=== PATIENT | male | born 1985 | race African-American/Black ===

== ENCOUNTER 2020-04-12 10:34 | Inpatient (IN) | payer OTHER ==
--- NOTE | 2020-04-12 11:43 | ED Physician Documentation ---
PD HPI DYSPNEA - Stated complaint Stated Complaint: SOA/CHEST PX/COUGH - Chief complaint Chief Complaint: Resp - History obtained from History obtained from: Patient - History of Present Illness Timing - onset: How many weeks ago (2.5) Timing - onset during: Rest Timing - duration: Weeks (2.5) Timing - details: Gradual onset, Still present Inciting event(s): Other (untreated hypertension) Improved by: Rest, Sitting up Worsened by: Exertion, Laying flat Associated symptoms: Cough, Chest pain / discomfort (to the Right chest). 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 He states that it comes on with any exertion or even bending over and that he does have some trouble sleeping at night having to sit up periodically to catch his breath. He had a particularly hard night last night and yesterday he tried some Primatene Mist thinking that might help open his airway and this essentially did nothing. He arrives to the emergency department this morning with concerns about exertional dyspnea and some right-sided chest pain that is developed about 2 days ago. He does indicate that he has regular alcohol consumption of a moderate amount 2-3 drinks and he denies excessive or binge drinking. He denies any family history of heart disease. He has had a history of hypertension and this has never been treated. He does remember his last value with a diastolic over 100. He denies any recent illness prior to the onset. He has now developed a dry cough. Review of Systems Constitutional: reports: Fatigue. denies: Fever Eyes: denies: Decreased vision Ears: denies: Ear pain Nose: denies: Rhinorrhea / runny nose, Congestion Throat: denies: Sore throat Cardiac: reports: Chest pain / pressure. denies: Palpitations, Pedal edema, Calf pain Respiratory: reports: Dyspnea, Cough. denies: Wheezing GI: denies: Abdominal Pain, Nausea, Vomiting : denies: Dysuria, Frequency Skin: denies: Rash Musculoskeletal: denies: Neck pain, Back pain, Extremity pain PD PAST MEDICAL HISTORY - Present Medications Home Medications: Ambulatory Orders Medication Instructions Recorded Confirmed Omeprazole 20 mg PO DAILY PRN 04/12/20 04/12/20 - Allergies Allergies/Adverse Reactions: Allergies Allergy/AdvReac Type Severity Reaction Status Date / Time No Known Drug Allergies Allergy Verified 04/12/20 10:45 PD ED PE NORMAL - Vitals Vital signs reviewed: Yes (tachy and hypertensive) - General General: Alert and oriented X 3, No acute distress, Well developed/nourished - HEENT HEENT: Atraumatic, PERRL, EOMI - Neck Neck: Supple, no meningeal sign, No bony TTP - Cardiac Cardiac: No murmur, Other (tachy) - Respiratory Respiratory: No respiratory distress, Other (diminished breath sounds without wheeze) - Abdomen Abdomen: Soft, Non tender - Back Back: No CVA TTP, No spinal TTP - Derm Derm: Normal color, Warm and dry, No rash - Extremities Extremities: No deformity, No edema - Neuro Neuro: Alert and oriented X 3, residential treatment counselor 2-12 intact, No motor deficit, No sensory deficit, Normal speech Eye Opening: Spontaneous Motor: Obeys Commands Verbal: Oriented GCS Score: 15 - Psych Psych: Normal mood, Normal affect Results - Vitals Vitals: Vital Signs - 24 hr 04/12/20 04/12/20 04/12/20 10:46 11:00 13:00 Temperature 36.7 C Heart Rate 118 H 114 H 114 H Respiratory 18 29 H 22 Rate Blood Pressure 141/106 H 152/117 H 151/110 H O2 Saturation 98 98 94 Oxygen O2 Source Room air - EKG (time done) 1053 Rate: Rate (enter#) (119) Rhythm: Sinus tachycardia QRS: LVH (with secondary repolarization abnormality with anterior ST elevation ) Compare to prior EKG: Old EKG unavailable Computer interpretation: Agree with computer - Labs Labs: Laboratory Tests 04/12/20 04/12/20 04/12/20 11:23 11:23 11:23 WBC 5.8 RBC 4.16 L Hgb 13.2 L Hct 39.9 L MCV 95.9 H MCH 31.7 H MCHC 33.1 RDW 14.3 Plt Count 119 L MPV 13.4 H Neut # (Auto) 3.9 Lymph # (Auto) 1.0 L [place] # (Auto) 0.8 Eos # (Auto) 0.1 Baso # (Auto) 0.0 Absolute Nucleated RBC 0.00 Nucleated RBC % 0.0 Sodium 141 Potassium 3.6 Chloride 103 Carbon Dioxide 24 Anion Gap 14.0 H BUN 13 Creatinine 1.1 Estimated GFR (MDRD) 92 Glucose 130 H Calcium 9.2 Total Bilirubin 1.6 H AST 93 H ALT 117 H Alkaline Phosphatase 48 Troponin I High Sens 78.5 H* B-Natriuretic Peptide Total Protein 7.1 Albumin 3.9 Globulin 3.2 Albumin/Globulin Ratio 1.2 Lipase 21 L 04/12/20 11:23 WBC RBC Hgb Hct MCV MCH MCHC RDW Plt Count MPV Neut # (Auto) Lymph # (Auto) [place] # (Auto) Eos # (Auto) Baso # (Auto) Absolute Nucleated RBC Nucleated RBC % Sodium Potassium Chloride Carbon Dioxide Anion Gap BUN Creatinine Estimated GFR (MDRD) Glucose Calcium Total Bilirubin AST ALT Alkaline Phosphatase Troponin I High Sens B-Natriuretic Peptide 2937 H Total Protein Albumin Globulin Albumin/Globulin Ratio Lipase - Rads (name of study) chest Radiology: Prelim report reviewed (Impression: Cardiomegaly and mild interstitial prominence can be seen. Although unusual in a patient of this age, please consider heart failure.), EMP read indepedently, See rad report Procedures - IVC sono (time) 1200 Bedside IVC sono: IVC measures (cm) (2.16), IVC collapsed c insp (cm) (2.16), High CVP PD MEDICAL DECISION MAKING - ED course Complexity details: reviewed results, re-evaluated patient, considered differential, d/w patient ED course: Previously well 34-year-old male with 2 and half weeks of exertional dyspnea progressive appears to have acute congestive heart failure on physical examination and laboratory testing and ancillary imaging. The suspected underlying etiology is untreated hypertension. I considered holiday heart to be unlikely by the patient's personal history of the amount of alcohol he is consuming recently.Dr. Jennings is consulted in the case and recommends admission to the floor for continued care. Departure - Departure Disposition: 66 [facility] DC/Xfer Clinical Impression: Hypertension, uncontrolled, Elevated troponin Pulmonary edema Qualifiers: Chronicity: chronic Qualified Code(s): J81.1 - Chronic pulmonary edema Condition: Serious
--- NOTE | 2020-04-12 11:47 | XRAY Report ---
PROCEDURE: Chest 1 View X-Ray INDICATIONS: Chest Pain TECHNIQUE: One view of the chest was acquired. COMPARISON: None FINDINGS: Surgical changes and devices: None. Lungs and pleura: No pleural effusions or pneumothorax. No focal infiltrates are seen. Mild inter stitial prominence is seen. Mediastinum: Mediastinal contours appear normal. Heart size is mildly to moderately enlarged. Bones and chest wall: No suspicious bony lesions. Overlying soft tissues appear unremarkable. IMPRESSION: Cardiomegaly and mild interstitial prominence can be seen. Although unusual in a patient of this age, please consider heart failure. Reviewed by: Demar Sofia MD on 04/12/2020 10:46 AM MAUDE Approved by: Demar Sofia MD on 04/12/2020 10:46 AM MAUDE Station ID: [id number]
[2020-04-12 12:14] LABS: BASOPHILS % (AUTO) 0.5 %; EOSINOPHILS # (AUTO) 0.1 10^3/uL (0.0-0.7); EOSINOPHILS % (AUTO) 2.1 %; HGB - HEMOGLOBIN 13.2 g/dL (14.0-18.0); LYMPHOCYTES % (AUTO) 16.4 %; MEAN CORPUSCULAR HEMOGLOBIN 31.7 pg (27.0-31.0); MEAN CORPUSCULAR HGB CONC 33.1 g/dL (32.0-36.0); MEAN CORPUSCULAR VOLUME 95.9 fL (80.0-94.0); MEAN PLATELET VOLUME 13.4 fL (7.4-11.4); MONOCYTES # (AUTO) 0.8 10^3/uL (0.0-1.0); MONOCYTES % (AUTO) 13.9 %; NEUTROPHILS # (AUTO) 3.9 10^3/uL (1.5-6.6); NEUTROPHILS % (AUTO) 66.9 %; PLT - PLATELET COUNT 119 10^3/uL (130-450); RED BLOOD COUNT 4.16 10^6/uL (4.70-6.10); RED CELL DISTRIBUTION WIDTH 14.3 % (12.0-15.0); WHITE BLOOD COUNT 5.8 x10^3/uL (4.8-10.8)
[2020-04-12 12:18] LABS: ALBUMIN 3.9 g/dL (3.2-5.5); ALBUMIN/GLOBULIN RATIO 1.2 (1.0-2.2); BILIRUBIN,TOTAL 1.6 mg/dL (0.2-1.0); CALCIUM 9.2 mg/dL (8.5-10.3); CREATININE 1.1 mg/dL (0.6-1.2); TOTAL PROTEIN 7.1 g/dL (6.7-8.2)
[2020-04-12] MEDS ORDERED: FUROSEMIDE 40 MG/4 ML VIAL IVP STA (12:29)
[2020-04-12] MEDS ORDERED: ONDANSETRON 4 MG/2 ML VIAL IVP PRN (13:19)
[2020-04-12] MEDS ORDERED: SODIUM CHLORIDE FLUSH 0.9% 10 ML SYRINGE IVP PRN (13:19)
[2020-04-12] MEDS ORDERED: MORPHINE 2 MG/ML CARPUJECT IVP PRN (13:19)
[2020-04-12] MEDS ORDERED: ASPIRIN CHEW 81 MG TABLET PO STA (13:25)
[2020-04-12] MEDS ORDERED: LORazepam 2 MG/ML VIAL IVP PRN (13:34)
[2020-04-12] MEDS ORDERED: METOPROLOL 5 MG/5 ML VIAL IVP STA (13:36)
[2020-04-12] MEDS ORDERED: METOPROLOL 5 MG/5 ML VIAL IVP SCH ×2 (14:00)
--- NOTE | 2020-04-12 15:00 | HISTORY & PHYSICAL EXAMINATION ---
DATE OF SERVICE: 04/12/2020 Physician: Luisa Jennings MD HISTORY OF PRESENT ILLNESS: This is a 34-year-old white male who has a history of untreated hypertension by his own admission, he only takes omeprazole p.r.n. He is active in the [employer]. He presents to the Emergency Room with complaints of a 2-1/2 week history of dyspnea on exertion and PND and orthopnea, especially worse over the last 2 days and last night. He tried to take Primatene mist yesterday for helping with the breathing, which had no effect. He came to the ER with this complaint and was found to be hypertensive with blood pressure 157/110 and tachycardic in sinus rhythm at a heart rate of 115. His chest x-ray showed pulmonary edema and his BNP has returned at 2900. The patient is being admitted for new onset of pulmonary edema, uncontrolled hypertension and tachycardia. PAST MEDICAL HISTORY: Negative. ALLERGIES: NONE. MEDICATIONS: Omeprazole p.r.n. FAMILY HISTORY: No inherited diseases on his mother side, he knows nothing about his father. He was and is , he has 2 children who are healthy, age 14 and 1, they live with their mother. SOCIAL HISTORY: The patient is a vaper of nicotine, uses alcohol, he does drink about 2 alcoholic drinks per day, but does not binge. REVIEW OF SYSTEMS: There has been no chest pain except recently on the right side, which is positional and pleuritic. He denies any palpitations or syncope. He denies nausea, vomiting, diarrhea. He has never had this symptom before 2- 1/2 weeks ago. He has been told on many [place] medical exams that he has hypertension, always told to "watch it", has never been started on blood pressure meds. He remembers this for about the last 3 years. Cannot remember if he is ever had an EKG. He has never had an Echo. He just had a medical exam 3 weeks ago in [place], before traveling to his newly assigned job at [employer]. He arrived here yesterday. He came with a dog in the car, the dog is still in the car. A comprehensive review of systems was performed and the pertinent positives are listed, the rest are negative. PHYSICAL EXAM GENERAL: Middle-aged black male. He is in mild respiratory distress. VITAL SIGNS: Blood pressure 151/110, heart rate 114 in sinus tachycardia, respiratory rate 22-29, room air saturation 94%. HEENT: Reveals moist oral mucosa and unremarkable. NECK: Shows no JVD in a vertical position. No carotid bruits. CHEST: Has bibasilar crackles. HEART: Tachycardiac. No audible murmur. ABDOMEN: Soft, nontender. Normal bowel sounds. EXTREMITIES: No clubbing, cyanosis or edema. NEUROLOGIC: Grossly intact. LABORATORY DATA: Normal electrolytes. Normal BUN and creatinine. Bilirubin 1.6, AST 93, ALT 117. Troponin high sensitivity is 78.5. BNP 2937. Normal lipase. White blood count 5.8, hemoglobin 13.2 with MCV of 95, platelet count borderline low at 119. No INR was done. Chest x-ray: Cardiomegaly and mild pulmonary edema. EKG: Sinus tachycardia at a rate of 119, LVH voltage with strain pattern in the precordial leads. Flat T waves in leads I, II, III and aVF. There is no old EKG available for comparison. IMPRESSION/DIAGNOSES 1. Pulmonary edema. 2. Hypertension, uncontrolled. 3. Tachycardia. 4. Elevated troponin. 5. Left ventricular hypertrophy seen on EKG, likely from his uncontrolled longstanding hypertension. 6. Alcohol use. 7. Elevated liver function tests, this may be passive liver congestion from CHF versus from his alcohol use. 8. Anemia. This may be hemodilutional given his volume overload or if it is a primary problem, it is adding to his congestive heart failure and work of breathing. PLAN: Admit the patient to med/surg status, on telemetry. Cycle troponins. Obtain an echo to evaluate LV and RV contractility. Begin IV b.i.d. Lasix, follow I's and O's and daily weights closely. Begin a low-salt cardiac diet. Give 4 chewable baby aspirin now because of the elevated troponin and start 1 baby aspirin daily. Use beta magdiel for rate control and for presumed systolic heart failure, and IV Lopressor dose will be given now to help the blood pressure and tachycardia. Follow his liver test daily, CBC daily. Order CIWA protocol because of his alcohol use history. Obtain social work consult regarding alcohol use versus abuse. DEEP VENOUS THROMBOSIS PROPHYLAXIS: Pharmacotherapy with Lovenox. CODE STATUS: FULL CODE. ATTESTATION: The patient is expected to be discharged or transferred to another facility within 96 hours: Yes. TD: 04/12/2020 13:46 HARRISON
[2020-04-12] MEDS: FUROSEMIDE 20 MG/2 ML VIAL IVP SCH (17:52)
[2020-04-12] MEDS: SODIUM CHLORIDE FLUSH 0.9% 10 ML SYRINGE IVP SCH (17:59)
--- NOTE | 2020-04-12 20:09 | PROVIDER PROGRESS NOTE ---
Hospitalist Cross-cover Note - Cross-Cover Note Cross-Cover Note: The patient was given IV diuretic in the ER and has started to have diuresis and feels better, is less orthopneic. Blood pressure has improved from 150 systolic to 130 systolic, heart rate down from 114 to 90. Bedside Echo was done by myself and shows very dilated LV, thickened LV marshall, severe global hypokinesis, EF about 15%. I discussed with patient the possible reasons for this finding: Untreated hypertension longstanding, drug or alcohol abuse, viral infection causing cardiomyopathy, coronary disease causing global ischemia. Will add Spironolactone and start SAUL inhibitor. Continue IV diuretic and beta- magdiel. The troponins are continuing to rise: 70>> 130>> 166. Will continue to test serial troponins until we see the peak and it turns around. Will add 4 baby aspirin now and daily baby ASA, and start Nitropaste. He will need to be transferred to higher level of care, in his case to [facility], I will attempt to do this to tomorrow. I told him and our [facility] RN this. 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 Critical care time spent on all the above: 45 minutes
[2020-04-12] MEDS: FAMOTIDINE 20 MG TABLET PO SCH (20:38)
[2020-04-12] MEDS: METOPROLOL SUCCINATE 25 MG TABLET PO SCH (20:38)
[2020-04-12] MEDS: NITROGLYCERIN 2% PASTE TOP SCH (22:07)
[2020-04-13] MEDS: SODIUM CHLORIDE FLUSH 0.9% 10 ML SYRINGE IVP SCH ×3 (01:20→17:34)
[2020-04-13 05:50] LABS: BASOPHILS # (AUTO) 0.1 10^3/uL (0.0-0.1); BASOPHILS % (AUTO) 0.8 %; EOSINOPHILS # (AUTO) 0.2 10^3/uL (0.0-0.7); EOSINOPHILS % (AUTO) 2.8 %; HGB - HEMOGLOBIN 13.3 g/dL (14.0-18.0); LYMPHOCYTES # (AUTO) 1.3 10^3/uL (1.5-3.5); LYMPHOCYTES % (AUTO) 21.9 %; MEAN CORPUSCULAR HEMOGLOBIN 32.3 pg (27.0-31.0); MEAN CORPUSCULAR HGB CONC 33.3 g/dL (32.0-36.0); MEAN CORPUSCULAR VOLUME 97.1 fL (80.0-94.0); MEAN PLATELET VOLUME 13.8 fL (7.4-11.4); MONOCYTES # (AUTO) 0.8 10^3/uL (0.0-1.0); MONOCYTES % (AUTO) 12.7 %; NEUTROPHILS # (AUTO) 3.7 10^3/uL (1.5-6.6); NEUTROPHILS % (AUTO) 61.5 %; PLT - PLATELET COUNT 121 10^3/uL (130-450); RED BLOOD COUNT 4.12 10^6/uL (4.70-6.10); RED CELL DISTRIBUTION WIDTH 14.1 % (12.0-15.0)
[2020-04-13] MEDS: NITROGLYCERIN 2% PASTE TOP SCH ×3 (06:12→21:39)
[2020-04-13 06:17] LABS: ALBUMIN 3.6 g/dL (3.2-5.5); ALBUMIN/GLOBULIN RATIO 1.1 (1.0-2.2); ALKALINE PHOSPHATASE 44 IU/L (42-121); ALT ALANINE AMINOTRANSFERASE 102 IU/L (10-60); AST ASPARTATE AMINOTRANSFERASE 72 IU/L (10-42); BILIRUBIN,TOTAL 0.9 mg/dL (0.2-1.0); BUN - BLOOD UREA NITROGEN 18 mg/dL (6-20); CALCIUM 9.2 mg/dL (8.5-10.3); CARBON DIOXIDE - CO2 19 mmol/L (21-32); CHLORIDE 105 mmol/L (101-111); CHOL/HDL RATIO 4.1 (<5.0); CHOLESTEROL 236 mg/dL; CREATININE 1.4 mg/dL (0.6-1.2); GLUCOSE 133 mg/dL (70-100); HDL CHOLESTEROL 58 mg/dL; LDL CHOLESTEROL,CALCULATED 147 mg/dL; LDL/HDL RATIO 2.5 (<3.6); SODIUM 141 mmol/L (135-145); TOTAL PROTEIN 6.9 g/dL (6.7-8.2); VLDL CHOLESTEROL 31 mg/dL
[2020-04-13] MEDS: FUROSEMIDE 20 MG/2 ML VIAL IVP SCH ×2 (06:29→13:20)
[2020-04-13] MEDS ORDERED: lisinopriL 5 MG TABLET PO SCH (09:00)
[2020-04-13] MEDS: FAMOTIDINE 20 MG TABLET PO SCH ×2 (10:28→21:40)
[2020-04-13] MEDS: ASPIRIN EC 81 MG TABLET PO SCH (10:28)
[2020-04-13] MEDS: SPIRONOLACTONE 25 MG TABLET PO SCH (10:30)
[2020-04-13] MEDS: METOPROLOL SUCCINATE 25 MG TABLET PO SCH ×2 (10:30→21:40)
[2020-04-13] MEDS: ENOXAPARIN 40 MG/0.4 ML SYRINGE SUBQ SCH (10:34)
--- NOTE | 2020-04-13 13:59 | PROVIDER PROGRESS NOTE ---
Assessment/Plan - Problem List (1) Acute systolic heart failure Assessment/Plan: The patient's 2 and half weeks of worsening dyspnea on exertion and 2 days of severe orthopnea plus admission BNP of 2900, were consistent with severe congestive heart failure. I did a bedside Echo yesterday that showed a dilated LV with LVEF of about 15%. Today the patient had a complete Echo done with Doppler and this confirms a dilated LV with EF less than 20%. He has pulmonary hypertension as well. IV Lasix twice daily has been started and he is having a good diuretic effect, it is helping his PND. He has also been started on beta-magdiel, SAUL inhibitor and Spironolactone. This combination of meds has helped his untreated blood pressure. Follow-up BNP until we see an improvement. Follow his electrolytes daily and magnesium daily with diuresis starting. A 2000 and a fluid restriction was ordered and low-salt, cardiac diet Follow daily weights and strict I's and O's were ordered. He was told yesterday and also reiterated today with the listening by phone, that CHF this severe could take 3 months or more to see an improvement in ejection fraction. It would been on the cause, therefore he needs transfer for coronary angiography and left and right heart catheterization. I asked if he needs any emotional support, and will let SW know. (2) Type 2 acute myocardial infarction Assessment/Plan: His troponins have increased significantly and peaked in the 700s, then down to 500s. He received 4 baby aspirin last night, and is on daily baby aspirin now, and als o was started on Nitropaste which was dosed to help the high blood pressure as well. Transfer for coronary angiography and left & rigjht heart catheterization is the plan. I reached out to [facility] near [place] today, they have no beds available, and are housing people awaiting surgeries and do not anticipate bed s opening. The person said that he can be transferred to a civilian hospital. I offered the patient choices as to location for cardiology services and he has never been at any of our higher level of care hospitals, in [facility]. I also spoke to his by phone in the patient's room, and she wonders if he can be transferred to a hospital closer to his family and relatives who are all in [place] in [place]. I will pass on this question to utilization management. (3) Hypertension, uncontrolled Assessment/Plan: Patient had reported that at [facility] medical visits, he was told he had high blood pressure then was told to purchase a blood pressure cuff and "keep an eye on it". This recurred for the about the last 3 years. He was never started on blood pressure meds however. Mentation blood pressure was 157/110. Blood pressure is in the 1 20-1 30s systolic now with his combination of meds started to treat CHF. (4) PAULINE (acute kidney injury) Assessment/Plan: Creatinine has risen from normal to 1.4 today. We will decrease the rate of diuresis, decrease iv Lasix to once a day. Avoid nephrotoxic agents. Follow BMP daily (5) Hyperlipidemia Assessment/Plan: Fasting lipid panel blood tests were done this morning: Triglycerides are elevated at 153, and LDL is elevated at 147. Lipitor started for the type II UT at 80 mg. We will order a low sweets/low starch diet and continue cardiac diet. (6) Vapes nicotine containing substance Assessment/Plan: Potentially the patient wanted to go to the car for a nicotine urge. He was offered a nicotine patch and very much wants 1. Nicotine 14 mg topically daily has been ordered to start today - Current Meds Current Meds: Current Medications Generic Name Dose Route Start Last Admin Trade Name Edmundoq PRN Reason Stop Dose Admin Aspirin 81 mg 04/13/20 09:00 04/13/20 10:28 Ecotrin PO 81 mg DAILY MARKY Administration Enoxaparin Sodium 40 mg 04/13/20 09:00 04/13/20 10:34 Lovenox SUBQ 40 mg DAILY MARKY Administration Famotidine 20 mg 04/12/20 21:00 04/13/20 10:28 Pepcid PO 20 mg BID MARKY Administration Furosemide 20 mg 04/12/20 14:00 04/13/20 13:20 Lasix Inj 20mg Vial IVP 20 mg BIDDIURETIC MARKY Administration Lisinopril 5 mg 04/13/20 09:00 04/13/20 10:29 Zestril PO 5 mg DAILY MARKY Administration Metoprolol Succinate 25 mg 04/12/20 21:00 04/13/20 10:30 Toprol Xl PO 25 mg BID MARKY Administration Nitroglycerin 0.5 inch 04/12/20 21:00 04/13/20 13:20 Nitro-Bid (Pkt) TOP 0.5 inch Q8H MARKY Administration Sodium Chloride 10 ml 04/12/20 17:00 04/13/20 10:30 Normal Saline Flush 0.9% IVP 10 ml 0100,0900,1700 MARKY Administration Spironolactone 25 mg 04/13/20 09:00 04/13/20 10:30 Aldactone PO 25 mg DAILY MARKY Administration - Lab Result Fish Bone Diagrams: 04/13/20 05:20 04/13/20 05:20 - Additional Planning My Orders: My Active Orders 04/12/20 13:19 Activity Orders [RC] Q2HR Fluid Restriction [RC] ONCE IO [RC] IOSHIFT Initiate Bowel Care Protocol [RC] .protocol Initiate Personal Care Protoco [RC] .protocol Oxygen Therapy [RC] Routine Telemetry- [RC] Q4HR Vital Signs [RC] Q4HR Morphine Inj (Carpuject) [Morphine (Carpuject)] 1 mg IVP Q4HR PRN Ondansetron Inj [Zofran Inj] 4 mg IVP Q6HR PRN Sodium Chloride Flush 0.9% [Normal Saline Flush 0.9%] 10 ml IVP PRN PRN Code Status [OTHERS] Routine Condition of Patient [OTHERS] Routine DVT Prophylaxis [OTHERS] Routine 04/12/20 13:21 Daily Weight [RC] 0600 04/12/20 13:23 Initiate Line Care Protocol [RC] QSHIFT Miscellaenous Nursing Order [RC] QSHIFT 04/12/20 13:34 Vital Signs [RC] Q3HR LORazepam INJ [Ativan Inj (Vial)] 1 mg IVP Q30M PRN 04/12/20 13:35 Blood Glucose POC [RC] Routine CIWA - AR Score Card [RC] Q4HR Q4HR Neuro Check [RC] Routine Routine Social Work Consult [CONS] Routine 04/12/20 14:00 FUROSEMIDE INJ 20mg VIAL [LASIX INJ 20mg VIAL] 20 mg IVP BIDDIURETIC 04/12/20 Dinner Low Sodium Diet [DIET] 04/12/20 17:00 Sodium Chloride Flush 0.9% [Normal Saline Flush 0.9%] 10 ml IVP 0100,0900,1700 04/12/20 21:00 Famotidine [Pepcid] 20 mg PO BID Metoprolol Succinate [Toprol Xl] 25 mg PO BID 04/13/20 08:00 Echo Transthoracic Complete [ECHO] Routine 04/13/20 09:00 Aspirin EC [Ecotrin] 81 mg PO DAILY Enoxaparin [Lovenox] 40 mg SUBQ DAILY Spironolactone [Aldactone] 25 mg PO DAILY lisinopriL [Zestril] 5 mg PO DAILY 04/13/20 13:56 Nicotine 14 mg Patch [Nicoderm] 1 patch TOP DAILY 04/14/20 05:00 BNP - B-NATRIURETIC PEPTIDE [IAI] DAILYLAB CBC - COMP BLD CT W/AUTO DIFF [HEME] DAILYLAB CMP [COMPREHENSIVE METABOLIC PANEL] [CHEM] DAILYLAB MAGNESIUM [CHEM] DAILYLAB 04/15/20 05:00 CBC - COMP BLD CT W/AUTO DIFF [HEME] DAILYLAB CMP [COMPREHENSIVE METABOLIC PANEL] [CHEM] DAILYLAB MAGNESIUM [CHEM] DAILYLAB 04/16/20 05:00 CBC - COMP BLD CT W/AUTO DIFF [HEME] DAILYLAB CMP [COMPREHENSIVE METABOLIC PANEL] [CHEM] DAILYLAB MAGNESIUM [CHEM] DAILYLAB Subjective - Subjective Patient Reports: Feeling Better, Shortness of Breath, Other (The orthopnea was better, less dyspnea during walking in his room, he is urinating about once an hour, he seemed fidgety and wanted to go to his car "to get his uniform", Gerardo was going to be transferred to [facility].) Objective Vital Signs: Vital Signs - 24 hr 04/12/20 04/12/20 04/12/20 16:00 17:42 17:51 Temperature 37.4 C Heart Rate Heart Rate [ 114 H 116 H Brachial] Respiratory 16 16 Rate Blood Pressure 156/103 H Blood Pressure 135/105 H 148/104 H [Right Brachial artery] O2 Saturation 98 98 04/12/20 04/12/20 04/12/20 17:56 18:01 18:06 Temperature Heart Rate Heart Rate [ 56 L 58 L 106 H Brachial] Respiratory Rate Blood Pressure Blood Pressure 156/103 H 140/97 H 123/104 H [Right Brachial artery] O2 Saturation 98 98 96 04/12/20 04/12/20 04/12/20 18:11 18:26 18:41 Temperature Heart Rate Heart Rate [ 102 H 110 H 100 Brachial] Respiratory Rate Blood Pressure Blood Pressure 130/93 H 130/91 H 136/95 H [Right Brachial artery] O2 Saturation 96 98 98 04/12/20 04/12/20 04/12/20 18:56 20:36 21:00 Temperature 37.2 C Heart Rate Heart Rate [ 104 H 112 H 106 H Brachial] Respiratory Rate Blood Pressure Blood Pressure 128/90 H 132/92 H 126/101 H [Right Brachial artery] O2 Saturation 99 94 04/13/20 04/13/20 04/13/20 00:05 03:48 08:45 Temperature 37.0 C 37.2 C 37.0 C Heart Rate Heart Rate [ 101 H 103 H 98 Brachial] Respiratory 16 19 18 Rate Blood Pressure Blood Pressure 121/69 136/97 H 124/99 H [Right Brachial artery] O2 Saturation 100 95 98 04/13/20 04/13/20 10:52 12:00 Temperature 37 C 37.0 C Heart Rate 98 Heart Rate [ 78 Brachial] Respiratory 18 17 Rate Blood Pressure Blood Pressure 133/77 H [Right Brachial artery] O2 Saturation 98 99 Oxygen O2 Source Room air I&O (Last 24 Hrs): Intake and Output Totals x24h 04/11/20 04/12/20 04/13/20 23:59 23:59 23:59 Intake Total 480 660 Output Total 800 Balance 480 -140 General: Alert, Oriented x3 HEENT: Mucous membr. moist/pink Neck: No JVD Neuro: Alert, Non Focal Cardiovascular: Regular rate Respiratory: Rales Abdomen: Soft Extremities: No edema - Results Results: Laboratory Results WBC 6.0 x10^3/uL (4.8-10.8) 04/13/20 05:20 RBC 4.12 10^6/uL (4.70-6.10) L 04/13/20 05:20 Hgb 13.3 g/dL (14.0-18.0) L 04/13/20 05:20 Hct 40.0 % (42.0-52.0) L 04/13/20 05:20 MCV 97.1 fL (80.0-94.0) H 04/13/20 05:20 MCH 32.3 pg (27.0-31.0) H 04/13/20 05:20 MCHC 33.3 g/dL (32.0-36.0) 04/13/20 05:20 RDW 14.1 % (12.0-15.0) 04/13/20 05:20 Plt Count 121 10^3/uL (130-450) L 04/13/20 05:20 MPV 13.8 fL (7.4-11.4) H 04/13/20 05:20 Neut # (Auto) 3.7 10^3/uL (1.5-6.6) 04/13/20 05:20 Lymph # (Auto) 1.3 10^3/uL (1.5-3.5) L 04/13/20 05:20 Keith # (Auto) 0.8 10^3/uL (0.0-1.0) 04/13/20 05:20 Eos # (Auto) 0.2 10^3/uL (0.0-0.7) 04/13/20 05:20 Baso # (Auto) 0.1 10^3/uL (0.0-0.1) 04/13/20 05:20 Absolute Nucleated RBC 0.00 x10^3/uL 04/13/20 05:20 Nucleated RBC % 0.0 /100WBC 04/13/20 05:20 Whole Blood INR 1.0 (0.8-1.2) 04/13/20 12:25 Sodium 141 mmol/L (135-145) 04/13/20 05:20 Potassium 3.7 mmol/L (3.5-5.0) 04/13/20 05:20 Chloride 105 mmol/L (101-111) 04/13/20 05:20 Carbon Dioxide 19 mmol/L (21-32) L 04/13/20 05:20 Anion Gap 17.0 (6-13) H 04/13/20 05:20 BUN 18 mg/dL (6-20) 04/13/20 05:20 Creatinine 1.4 mg/dL (0.6-1.2) H 04/13/20 05:20 Estimated GFR (MDRD) 70 (>89) L 04/13/20 05:20 Glucose 133 mg/dL (70-100) H 04/13/20 05:20 Calcium 9.2 mg/dL (8.5-10.3) 04/13/20 05:20 Magnesium 2.0 mg/dL (1.7-2.8) 04/13/20 05:20 Total Bilirubin 0.9 mg/dL (0.2-1.0) 04/13/20 05:20 GGT 206 IU/L (8-55) H 04/12/20 16:50 AST 72 IU/L (10-42) H 04/13/20 05:20 ALT 102 IU/L (10-60) H 04/13/20 05:20 Alkaline Phosphatase 44 IU/L (42-121) 04/13/20 05:20 Troponin I High Sens 542.5 ng/L (2.3-19.7) H* 04/13/20 12:25 B-Natriuretic Peptide 3537 pg/mL (5-100) H 04/13/20 05:20 Total Protein 6.9 g/dL (6.7-8.2) 04/13/20 05:20 Albumin 3.6 g/dL (3.2-5.5) 04/13/20 05:20 Globulin 3.3 g/dL (2.1-4.2) 04/13/20 05:20 Albumin/Globulin Ratio 1.1 (1.0-2.2) 04/13/20 05:20 Triglycerides 154 mg/dL (-149) H 04/13/20 05:20 Cholesterol 236 mg/dL (-199) H 04/13/20 05:20 LDL Cholesterol, Calc 147 mg/dL (-129) H 04/13/20 05:20 VLDL Cholesterol 31 mg/dL 04/13/20 05:20 HDL Cholesterol 58 mg/dL (60-) L 04/13/20 05:20 LDL/HDL Ratio 2.5 (<3.6) 04/13/20 05:20 Cholesterol/HDL Ratio 4.1 (<5.0) 04/13/20 05:20 Lipase 21 U/L (22-51) L 04/12/20 11:23
[2020-04-13] MEDS: NICOTINE 14 MG PATCH TOP SCH (14:20)
--- NOTE | 2020-04-13 16:46 | PHARMACY PROGRESS NOTE ---
- Best Possible Medication History Admit Date and Time: 04/12/20 1319 Processed by: Pharmacy Medication History completed: Yes Patient Interview: Completed Secondary Source(s): Physician records (PATIENT INTERVIEWED BY SERVICE DISPATCHER. PATIENT ABLE TO CONFIRM HOME MEDICATIONS), Pharmacy records, Insurance records As the person ultimately responsible for medication therapy, providers are able to order a medication from an existing home medication list in [facility] via the "Reconcile Routine" prior to Confirmation of that medication by technical support internship. Such practice is discouraged except when the physician, in their clinical judgment, deems that a medical need exists for a medication without regard to previous use.
[2020-04-13] MEDS ORDERED: traZODone 50 MG TABLET PO SCH (21:00)
[2020-04-13] MEDS ORDERED: ATORVASTATIN 40 MG TABLET PO SCH (21:00)
[2020-04-14] MEDS: SODIUM CHLORIDE FLUSH 0.9% 10 ML SYRINGE IVP SCH ×2 (03:00→08:44)
[2020-04-14] MEDS: NITROGLYCERIN 2% PASTE TOP SCH (05:30)
[2020-04-14 05:55] LABS: BASOPHILS % (AUTO) 0.7 %; EOSINOPHILS % (AUTO) 3.4 %; HGB - HEMOGLOBIN 13.2 g/dL (14.0-18.0); LYMPHOCYTES % (AUTO) 22.4 %; MEAN CORPUSCULAR HEMOGLOBIN 31.9 pg (27.0-31.0); MEAN CORPUSCULAR HGB CONC 33.5 g/dL (32.0-36.0); MEAN CORPUSCULAR VOLUME 95.2 fL (80.0-94.0); MEAN PLATELET VOLUME 13.7 fL (7.4-11.4); MONOCYTES % (AUTO) 13.2 %; NEUTROPHILS % (AUTO) 60.1 %; PLT - PLATELET COUNT 125 10^3/uL (130-450); RED BLOOD COUNT 4.14 10^6/uL (4.70-6.10); RED CELL DISTRIBUTION WIDTH 13.8 % (12.0-15.0); WHITE BLOOD COUNT 5.6 x10^3/uL (4.8-10.8)
[2020-04-14 06:12] LABS: ALBUMIN 3.6 g/dL (3.2-5.5); ALBUMIN/GLOBULIN RATIO 1.3 (1.0-2.2); BILIRUBIN,TOTAL 1.1 mg/dL (0.2-1.0); CALCIUM 9.2 mg/dL (8.5-10.3); CREATININE 1.2 mg/dL (0.6-1.2); MAGNESIUM 1.9 mg/dL (1.7-2.8); TOTAL PROTEIN 6.4 g/dL (6.7-8.2)
[2020-04-14 06:14] LABS: RBC MORPHOLOGY (MULTIPLE) NORMAL APPEARANCE (NORMAL)
[2020-04-14 06:15] LABS: DIFFERENTIAL COMMENT MANUAL DIFFERENTIAL; PLATELET ESTIMATE, MANUAL DECREASED (<130,000) (NORMAL); PLATELET MORPHOLOGY 1+ LARGE PLATELETS (NORMAL)
[2020-04-14] MEDS ORDERED: FUROSEMIDE 20 MG/2 ML VIAL IVP SCH (08:00)
[2020-04-14] MEDS ORDERED: POTASSIUM CHLORIDE 20 MEQ TABLET PO ONE (08:23)
[2020-04-14] MEDS: SPIRONOLACTONE 25 MG TABLET PO SCH (08:42)
[2020-04-14] MEDS: ENOXAPARIN 40 MG/0.4 ML SYRINGE SUBQ SCH (08:43)
[2020-04-14] MEDS: FAMOTIDINE 20 MG TABLET PO SCH (08:43)
[2020-04-14] MEDS: ASPIRIN EC 81 MG TABLET PO SCH (08:43)
[2020-04-14] MEDS: METOPROLOL SUCCINATE 25 MG TABLET PO SCH (08:43)
[2020-04-14] MEDS ORDERED: lisinopriL 5 MG TABLET PO SCH (09:00)
[2020-04-14] MEDS: NICOTINE 14 MG PATCH TOP SCH (09:40)
[2020-04-14 10:41] LABS: HEMOGLOBIN A1c% 5.7 % (4.27-6.07)
[2020-04-14 11:41] VITALS: BP 106/77
--- NOTE | 2020-04-14 12:35 | DISCHARGE SUMMARY ---
"Discharge Summary Admit Date: 04/12/20 Discharge Date: 04/14/20 Discharging Provider: Oscar Sol Code Status: Attempt Resuscitation Condition at Discharge: Serious Discharge Disposition: 02 Transfer Acute Care Hosp Discharge Facility Name: [facility] - DIAGNOSES Admission Diagnoses: Pulmonary edema Hypertension, uncontrolled Tachycardia Elevated troponin LVH on EKG Elevated LFTs Anemia Discharge Diagnoses with Status of Each Condition: Acute systolic congestive heart failure Hypertension Mitral regurgitation Elevated right heart pressures - HPI History of Present Illness: H&P per Dr. Jennings: This is a 34-year-old male who has a history of untreated hypertension but is on admission, he only takes Meprazole as needed. He is active in the [employer]. He presents the emergency room with complaints of a 2-1/2-week history of dyspnea on exertion and PND and orthopnea, especially worse over the last 2 days and last night. He tried taking Primatene Mist yesterday following with the breathing, which had no effect. He came to the ER with this complaint is found to be hypertensive with a blood pressure 157/110 and tachycardic in a sinus rhythm at a heart of 115. His chest x-ray showed pulmonary edema and his BNP returned at 2900. The patient is being admitted for new onset of pulmonary edema, uncontrolled hypertension and tachycardia. - CONSULTS | PROCEDURES Procedures: Echocardiogram on April 13 showed severe left ventricular enlargement. Overall left ventricular systolic function is severely impaired with global h ypokinesis, and ejection fraction less than 20%. The right ventricle is normal in size and function. There is thickening of the mitral valve leaflets. There is moderate to severe mitral regurgitation. The ER was 0.24 cm and the regurgitant volume is 35mL. Moderate tricuspid regurgitation. Moderately abnormal right heart pressures. The RVSP at rest is 58 mmHg. Chest x-ray April 12 showed cardiomegaly and mild interstitial prominence. Please consider heart failure. - HOSPITAL COURSE Hospital Course: >He was admitted to the floor for suspected new onset congestive heart failure. He was diuresed with IV Lasix. The following day his BNP had increased to 3500 from 2900 on admission. His troponins increased from the 70s to over 700 but have since trended down. An echocardiogram was obtained which showed a severely enlarged left ventricle with an ejection fraction of less than 20% with global hypokinesis. He was started on Aldactone, lisinopril, Toprol in addition to the Lasix. His BNP has trended down to 1600 and he has clinically improved. He is able to ambulate in his room with much improvement in his dyspnea. His EKG was suggestive of LVH with early repolarization. It was felt that his heart failure was likely due to uncontrolled hypertension. The patient did report daily alcohol use over the past few months where he has been consuming a pint of alcohol every 2-3 nights. He reports a remote history of smoking but denies any current cigarette use. He does admit to vaping. He reports no prior history of heroin, methamphetamine, cocaine use. He does report a remote history of marijuana use.Given the echocardiogram findings, it was felt the patient would be best transferred to higher level of care for further cardiac evaluation. [facility] was contacted but there were no beds available. [facility] were also contacted but unfortunately no beds were available. I spoke with Dr. Lopez of cardiology at [facility] in [place] who felt the patient should be transferred for further work-up including likely cardiac MRI. I spoke with Dr. Saleem of the hospitalist [facility] who graciously accepted the patient. - ALLERGIES Allergies/Adverse Reactions: Allergies Allergy/AdvReac Type Severity Reaction Status Date / Time No Known Drug Allergies Allergy Verified 04/12/20 10:45 - MEDICATIONS Home Medications: Ambulatory Orders Medication Instructions Recorded Confirmed Omeprazole 20 mg PO DAILY PRN 04/12/20 04/12/20 Home Medications Other | Comments: Active Medications Aspirin (Ecotrin) 81 mg PO DAILY [facility] Last Admin: 04/14/20 08:43 Dose: 81 mg Documented by: Atorvastatin Calcium (Lipitor) 40 mg PO QPM [facility] Enoxaparin Sodium (Lovenox) 40 mg SUBQ DAILY [facility] Last Admin: 04/14/20 08:43 Dose: 40 mg Documented by: Furosemide (Lasix Inj 20mg Vial) 20 mg IVP 0800 [facility] Last Admin: 04/14/20 08:42 Dose: 20 mg Documented by: Lisinopril (Zestril) 2.5 mg PO DAILY [facility] Last Admin: 04/14/20 08:43 Dose: 2.5 mg Documented by: Lorazepam (Ativan Inj (Vial)) 1 mg IVP Q30M PRN; Protocol PRN Reason: CIWA >8 Metoprolol Succinate (Toprol Xl) 25 mg PO BID [facility] Last Admin: 04/14/20 08:43 Dose: 25 mg Documented by: Morphine Sulfate (Morphine (Carpuject)) 1 mg IVP Q4HR PRN PRN Reason: Dyspnea Nicotine (Nicoderm) 1 patch TOP DAILY [facility] Last Admin: 04/14/20 09:40 Dose: 1 patch Documented by: Nitroglycerin (Nitro-Bid (Pkt)) 0.5 inch TOP Q8H [facility] Last Admin: 04/14/20 05:30 Dose: 0.5 inch Documented by: Ondansetron HCl (Zofran Inj) 4 mg IVP Q6HR PRN PRN Reason: Nausea / Vomiting Sodium Chloride (Normal Saline Flush 0.9%) 10 ml IVP PRN PRN PRN Reason: NEEDED PER PROVIDER ORDERS Sodium Chloride (Normal Saline Flush 0.9%) 10 ml IVP 0100,0900,1700 [facility] Last Admin: 04/14/20 08:44 Dose: 10 ml Documented by: Spironolactone (Aldactone) 25 mg PO DAILY [facility] Last Admin: 04/14/20 08:42 Dose: 25 mg Documented by: Trazodone HCl (Desyrel) 50 mg PO QPM [facility] Last Admin: 04/13/20 21:40 Dose: 50 mg Documented by: Omeprazole 20 mg PO DAILY PRN 04/12/20 - PHYSICAL EXAM AT DISCHARGE General Appearance: positive: No acute distress, Alert, Mild distress Eyes Bilateral: positive: Normal inspection, Conjunctivae nml ENT: positive: ENT inspection nml Neck: positive: Nml inspection Respiratory: positive: No respiratory distress. negative: Wheezes, Rales Cardiovascular: positive: Regular rate & rhythm, No murmur. negative: Irregularly irregular, Tachycardia, Bradycardia, Systolic murmur Abdomen: positive: Non-tender, No distention. negative: Tenderness, Guarding, Rebound Skin: positive: No rash, Warm, Dry Extremities: positive: Full ROM, No pedal edema Neurologic/Psychiatric: positive: Oriented x3, Motor nml. negative: Disoriented to person, Disoriented to place, Disoriented to time Physical Exam Other/Comments: Vital Signs - 24 hr 09/28/20 09/28/20 09/28/20 17:53 21:00 21:36 Temperature 37.0 C 36.9 C Heart Rate [ 71 91 97 Brachial] Respiratory 18 18 Rate Blood Pressure [Left Brachial artery] Blood Pressure 123/75 124/79 123/83 H [Right Brachial artery] O2 Saturation 93 93 04/14/20 04/14/20 04/14/20 00:00 02:49 05:36 Temperature 36.9 C 36.8 C Heart Rate [ 89 85 93 Brachial] Respiratory 20 18 17 Rate Blood Pressure 114/74 122/87 H [Left Brachial artery] Blood Pressure 92/55 L [Right Brachial artery] O2 Saturation 90 L 95 95 04/14/20 04/14/20 07:51 11:40 Temperature 37.1 C 37.0 C Heart Rate [ 95 90 Brachial] Respiratory 18 18 Rate Blood Pressure [Left Brachial artery] Blood Pressure 120/87 H 106/77 [Right Brachial artery] O2 Saturation 97 99 - LABS Result Diagrams: 04/14/20 05:30 04/14/20 05:30 Other Lab Results: Laboratory Tests 04/12/20 04/12/20 04/12/20 11:23 11:23 11:23 WBC 5.8 RBC 4.16 L Hgb 13.2 L Hct 39.9 L MCV 95.9 H MCH 31.7 H MCHC 33.1 RDW 14.3 Plt Count 119 L MPV 13.4 H Neut # (Auto) 3.9 Lymph # (Auto) 1.0 L Hartley # (Auto) 0.8 Eos # (Auto) 0.1 Baso # (Auto) 0.0 Absolute Nucleated RBC 0.00 Band Neuts % (Manual) Abnorm Lymph % (Manual) Nucleated RBC % 0.0 Neutrophils # (Manual) Lymphocytes # (Manual) Monocytes # (Manual) Eosinophils # (Manual) Basophils # (Manual) Differential Comment WBC Morphology Platelet Estimate Platelet Morphology RBC Morph Micro Appear Whole Blood INR Sodium 141 Potassium 3.6 Chloride 103 Carbon Dioxide 24 Anion Gap 14.0 H BUN 13 Creatinine 1.1 Estimated GFR (MDRD) 92 Glucose 130 H Estimat Average Glucose Hemoglobin A1c % Calcium 9.2 Magnesium Total Bilirubin 1.6 H GGT AST 93 H ALT 117 H Alkaline Phosphatase 48 Troponin I High Sens 78.5 H* B-Natriuretic Peptide Total Protein 7.1 Albumin 3.9 Globulin 3.2 Albumin/Globulin Ratio 1.2 Triglycerides Cholesterol LDL Cholesterol, Calc VLDL Cholesterol HDL Cholesterol LDL/HDL Ratio Cholesterol/HDL Ratio Lipase 21 L 04/12/20 04/12/20 04/12/20 11:23 14:48 16:50 WBC RBC Hgb Hct MCV MCH MCHC RDW Plt Count MPV Neut # (Auto) Lymph # (Auto) Hartley # (Auto) Eos # (Auto) Baso # (Auto) Absolute Nucleated RBC Band Neuts % (Manual) Abnorm Lymph % (Manual) Nucleated RBC % Neutrophils # (Manual) Lymphocytes # (Manual) Monocytes # (Manual) Eosinophils # (Manual) Basophils # (Manual) Differential Comment WBC Morphology Platelet Estimate Platelet Morphology RBC Morph Micro Appear Whole Blood INR Sodium Potassium Chloride Carbon Dioxide Anion Gap BUN Creatinine Estimated GFR (MDRD) Glucose Estimat Average Glucose Hemoglobin A1c % Calcium Magnesium Total Bilirubin GGT AST ALT Alkaline Phosphatase Troponin I High Sens 133.9 H* 169.2 H* B-Natriuretic Peptide 2937 H Total Protein Albumin Globulin Albumin/Globulin Ratio Triglycerides Cholesterol LDL Cholesterol, Calc VLDL Cholesterol HDL Cholesterol LDL/HDL Ratio Cholesterol/HDL Ratio Lipase 04/12/20 04/13/20 04/13/20 16:50 05:20 05:20 WBC 6.0 RBC 4.12 L Hgb 13.3 L Hct 40.0 L MCV 97.1 H MCH 32.3 H MCHC 33.3 RDW 14.1 Plt Count 121 L MPV 13.8 H Neut # (Auto) 3.7 Lymph # (Auto) 1.3 L Hartley # (Auto) 0.8 Eos # (Auto) 0.2 Baso # (Auto) 0.1 Absolute Nucleated RBC 0.00 Band Neuts % (Manual) Abnorm Lymph % (Manual) Nucleated RBC % 0.0 Neutrophils # (Manual) Lymphocytes # (Manual) Monocytes # (Manual) Eosinophils # (Manual) Basophils # (Manual) Differential Comment WBC Morphology Platelet Estimate Platelet Morphology RBC Morph Micro Appear Whole Blood INR Sodium 141 Potassium 3.7 Chloride 105 Carbon Dioxide 19 L Anion Gap 17.0 H BUN 18 Creatinine 1.4 H Estimated GFR (MDRD) 70 L Glucose 133 H Estimat Average Glucose Hemoglobin A1c % Calcium 9.2 Magnesium 2.0 Total Bilirubin 0.9 GGT 206 H AST 72 H ALT 102 H Alkaline Phosphatase 44 Troponin I High Sens B-Natriuretic Peptide Total Protein 6.9 Albumin 3.6 Globulin 3.3 Albumin/Globulin Ratio 1.1 Triglycerides 154 H Cholesterol 236 H LDL Cholesterol, Calc 147 H VLDL Cholesterol 31 HDL Cholesterol 58 L LDL/HDL Ratio 2.5 Cholesterol/HDL Ratio 4.1 Lipase 04/13/20 04/13/20 04/13/20 05:20 05:20 12:25 WBC RBC Hgb Hct MCV MCH MCHC RDW Plt Count MPV Neut # (Auto) Lymph # (Auto) Hartley # (Auto) Eos # (Auto) Baso # (Auto) Absolute Nucleated RBC Band Neuts % (Manual) Abnorm Lymph % (Manual) Nucleated RBC % Neutrophils # (Manual) Lymphocytes # (Manual) Monocytes # (Manual) Eosinophils # (Manual) Basophils # (Manual) Differential Comment WBC Morphology Platelet Estimate Platelet Morphology RBC Morph Micro Appear Whole Blood INR Sodium Potassium Chloride Carbon Dioxide Anion Gap BUN Creatinine Estimated GFR (MDRD) Glucose Estimat Average Glucose Hemoglobin A1c % Calcium Magnesium Total Bilirubin GGT AST ALT Alkaline Phosphatase Troponin I High Sens 737.7 H* 542.5 H* B-Natriuretic Peptide 3537 H Total Protein Albumin Globulin Albumin/Globulin Ratio Triglycerides Cholesterol LDL Cholesterol, Calc VLDL Cholesterol HDL Cholesterol LDL/HDL Ratio Cholesterol/HDL Ratio Lipase 04/13/20 04/14/20 04/14/20 12:25 05:30 05:30 WBC 5.6 RBC 4.14 L Hgb 13.2 L Hct 39.4 L MCV 95.2 H MCH 31.9 H MCHC 33.5 RDW 13.8 Plt Count 125 L MPV 13.7 H Neut # (Auto) Not Reportable Lymph # (Auto) Not Reportable Hartley # (Auto) Not Reportable Eos # (Auto) Not Reportable Baso # (Auto) Not Reportable Absolute Nucleated RBC Not Reportable Band Neuts % (Manual) Not Reportable Abnorm Lymph % (Manual) Not Reportable Nucleated RBC % Not Reportable Neutrophils # (Manual) Not Reportable Lymphocytes # (Manual) Not Reportable Monocytes # (Manual) Not Reportable Eosinophils # (Manual) Not Reportable Basophils # (Manual) Not Reportable Differential Comment MANUAL DIFFERENTIAL WBC Morphology NORMAL APPEARANCE Platelet Estimate DECREASED (<130,000) Platelet Morphology 1+ LARGE PLATELETS RBC Morph Micro Appear NORMAL APPEARANCE Whole Blood INR 1.0 Sodium 141 Potassium 3.3 L Chloride 105 Carbon Dioxide 25 Anion Gap 11.0 BUN 18 Creatinine 1.2 Estimated GFR (MDRD) 84 L Glucose 116 H Estimat Average Glucose Hemoglobin A1c % Calcium 9.2 Magnesium 1.9 Total Bilirubin 1.1 H GGT AST 44 H ALT 78 H Alkaline Phosphatase 41 L Troponin I High Sens B-Natriuretic Peptide Total Protein 6.4 L Albumin 3.6 Globulin 2.8 Albumin/Globulin Ratio 1.3 Triglycerides Cholesterol LDL Cholesterol, Calc VLDL Cholesterol HDL Cholesterol LDL/HDL Ratio Cholesterol/HDL Ratio Lipase 04/14/20 04/14/20 05:30 05:30 WBC RBC Hgb Hct MCV MCH MCHC RDW Plt Count MPV Neut # (Auto) Lymph # (Auto) Hartley # (Auto) Eos # (Auto) Baso # (Auto) Absolute Nucleated RBC Band Neuts % (Manual) Abnorm Lymph % (Manual) Nucleated RBC % Neutrophils # (Manual) Lymphocytes # (Manual) Monocytes # (Manual) Eosinophils # (Manual) Basophils # (Manual) Differential Comment WBC Morphology Platelet Estimate Platelet Morphology RBC Morph Micro Appear Whole Blood INR Sodium Potassium Chloride Carbon Dioxide Anion Gap BUN Creatinine Estimated GFR (MDRD) Glucose Estimat Average Glucose 117 H Hemoglobin A1c % 5.7 Calcium Magnesium Total Bilirubin GGT AST ALT Alkaline Phosphatase Troponin I High Sens B-Natriuretic Peptide 1625 H Total Protein Albumin Globulin Albumin/Globulin Ratio Triglycerides Cholesterol LDL Cholesterol, Calc VLDL Cholesterol HDL Cholesterol LDL/HDL Ratio Cholesterol/HDL Ratio Lipase - DIAGNOSTIC IMAGING Diagnostic Imaging Results: Final report reviewed - TIME SPENT Time Spent in Discharge (Minutes): 45"
[2020-04-14] MEDS ORDERED: ATORVASTATIN 40 MG TABLET PO SCH (21:00)
== END 2020-04-14 13:55 | disposition short-term general hospital (02) | DRG 280 ==
LOC: ED 10:34 → SUATTDRO 10:34 → MS3 13:19 → MS2 14:12
PROVIDERS: ADMIT Internal Medicine; ATTEND Internal Medicine
DX: I11.0 Hypertensive heart disease with heart failure (principal); I50.21 Acute systolic (congestive) heart failure; I21.A1 Myocardial infarction type 2; N17.9 Acute kidney failure, unspecified; R79.89 Other specified abnormal findings of blood chemistry; I27.20 Pulmonary hypertension, unspecified; I08.1 Rheumatic disorders of both mitral and tricuspid valves; F17.290 Nicotine dependence, other tobacco product, uncomplicated; R00.0 Tachycardia, unspecified; D64.9 Anemia, unspecified; E78.5 Hyperlipidemia, unspecified
CPT/HCPCS: 36415; 71045; 80053; 80061; 82977; 83036; 83690; 83735; 83880; 84484; 85025; 85610; 93005; 93306; 96374; 99284; 99285; A9270; J1650; 83721

== ENCOUNTER 2020-04-14 13:59 | Outpatient (CLI) | payer OTHER | END 2020-04-14 14:00 | disposition short-term general hospital (02) | LOC: EMS 13:59 | PROVIDERS: ATTEND Surgery | DX: I11.0 Hypertensive heart disease with heart failure (principal); I50.9 Heart failure, unspecified | CPT/HCPCS: A0425; A0428 ==

== ENCOUNTER 2022-07-07 11:25 | Outpatient (CLI) | payer OTHER ==
--- NOTE | 2022-07-07 16:55 | XRAY Report ---
PROCEDURE: Lumbar Spine 2 View INDICATIONS: LOW BACK PX TECHNIQUE: 2 views of the lumbar spine were acquired. COMPARISON: None. FINDINGS: Bones: 5 [id number] vertebrae are present. There is very mild leftward curvature of lumbar spi ne centered at L3 level. No vertebral body compression fractures. No suspicious bony lesions. Soft tissues: Overlying bowel gas pattern is normal. No suspicious soft tissue calcifications. IMPRESSION: Mild leftward curvature of lumbar spine centered at L3 level. No compression fracture or spondylolisthesis. Reviewed by: Shaun Riley MD on 07/07/2022 4:54 PM PST Approved by: Shaun Riley MD on 07/07/2022 4:54 PM PST Station ID: [id number]
--- NOTE | 2022-07-07 17:03 | XRAY Report ---
PROCEDURE: Cervical Spine 2 View INDICATIONS: NECK PX TECHNIQUE: 4 view(s) of the cervical spine were acquired. COMPARISON: None. FINDINGS: Bones: No fractures or dislocations to the C7-T1 level. Straightening of normal cervical lordosis i s seen. The lateral masses of C1 appear intact on the odontoid view. No suspicious bony lesions. Soft tissues: No prevertebral soft tissue swelling. IMPRESSION: Mild straightening of normal cervical lordosis. No fracture or dislocation. No gross pre vertebral soft tissue abnormalities. Reviewed by: Shaun Riley MD on 07/07/2022 5:02 PM PST Approved by: Shaun Riley MD on 07/07/2022 5:02 PM PST Station ID: [id number]
== END 2022-07-07 11:26 | disposition home or self-care (01) ==
LOC: DI.N 11:25
PROVIDERS: ATTEND Internal Medicine Cardiovascular Disease
DX: M54.2 Cervicalgia (principal); M54.50 Low back pain, unspecified; M43.9 Deforming dorsopathy, unspecified